=== PATIENT | male | born 1950 | race Two or more races ===

== ENCOUNTER 2017-10-14 09:07 | Outpatient (CLI) | payer OTHER ==
[~2017-10-14 09:07] MED LIST: HYTRIN PO; SINGULAIR10 MG PO
== END 2017-10-14 09:14 | disposition home or self-care (01) ==
LOC: LAB 09:07
DX: R97.20 Elevated prostate specific antigen [PSA] (principal)

== ENCOUNTER 2018-09-22 07:14 | Outpatient (CLI) | payer OTHER | END 2018-09-22 07:56 | disposition home or self-care (01) | LOC: LAB 07:14 | DX: N30.00 Acute cystitis without hematuria (principal); C61 Malignant neoplasm of prostate ==

== ENCOUNTER → 2019-05-11 11:28 | Outpatient (CLI) | payer OTHER | END | disposition home or self-care (01) | LOC: LAB 11:28 | DX: N39.0 Urinary tract infection, site not specified (principal); C61 Malignant neoplasm of prostate ==

== ENCOUNTER 2019-09-14 10:01 | Outpatient (CLI) | payer OTHER | END 2019-09-14 10:05 | disposition home or self-care (01) | LOC: LAB 10:01 | DX: C61 Malignant neoplasm of prostate (principal); R31.1 Benign essential microscopic hematuria ==